=== PATIENT | female | born 1965 | race Caucasian/White ===

== ENCOUNTER 2017-01-17 07:15 | Emergency (ER) | payer BC ==
[2017-01-17 07:52] VITALS: BP 122/70
--- NOTE | 2017-01-17 08:48 | RAD ---
INDICATION: Left wrist pain. TECHNIQUE: 3 views of the left wrist were obtained. FINDINGS: The bones are in normal alignment. Joint spaces appear maintained. No fracture is seen. There is a curvilinear calcific density which projects along the volar aspect of the wrist anterior to the distal carpal row possibly representing an old fracture fragment. Joint spaces appear maintained. IMPRESSION: SOFT TISSUE CALCIFICATION DESCRIBED.
[2017-01-17] MEDS ORDERED: Ibuprofen TAB* 400 MG PO ONE (08:55)
--- NOTE | 2017-01-24 15:47 | UC ---
Hand/Wrist HPI - HPI Summary HPI Summary: Patient presents with nontraumatic left wrist pain with associated small reddened area. She reports pain at rest that is worse with movement. - History Of Current Complaint Chief Complaint: UCUpperExtremity Stated Complaint: WRIST INJURY Time Seen by Provider: 01/17/17 08:15 Onset/Duration: Gradual Onset, Lasting Days Severity Initially: Mild Severity Currently: Moderate Pain Intensity: 0 Pain Scale Used: 0-10 Numeric Character Of Pain: Dull, Aching Aggravating Factor(s): Movement, Lifting, Flexion, Extension, Twisting, Pulling Alleviating Factor(s): Elevation, OTC Meds Associated Signs And Symptoms: Positive: Redness - Risk Factors Compartment Syndrome Risk Factors: Pain - Allergies/Home Medications Allergies/Adverse Reactions: Allergies Allergy/AdvReac Type Severity Reaction Status Date / Time No Known Allergies Allergy Verified 01/17/17 11:33 Home Medications: Home Medications Lactobacillus [Probiotic] 1 tab PO DAILY 01/17/17 [History Confirmed 01/17/17] PMH/Surg Hx/FS Hx/Imm Hx Previously Healthy: Yes Other History Of: Negative For: Anticoagulant Therapy - Surgical History Surgical History: Yes Surgery Procedure, Year, and Place: CHOLECYSTECTOMY 2000, APPENDECTOMY 2000, TOTAL HYSTERECTOMY 1999, - 1995, hernia repair 1995, laproscopic procedure for adhesions 1998, diagnostic laparotomy 2001. [place] 04[place]2013 [place] [facility] [place] History Known Family History: Positive: Cardiac Disease, Hypertension - Social History Occupation: Employed Full-time Lives: Alone Alcohol Use: Occasionally Alcohol Amount: "Socially- on weekends" Substance Use Type: None Smoking Status (MU): Current Some Day Smoker Type: Cigarettes Amount Used/How Often: 10 CIGS PER WEEK Have You Smoked in the Last Year: Yes - Immunization History Most Recent Influenza Vaccination: Not UTD Most Recent Tetanus Shot: last 10 years Most Recent Pneumonia Vaccination: never Review of Systems Constitutional: Negative Skin: Negative Eyes: Negative ENT: Negative Respiratory: Negative Cardiovascular: Negative Gastrointestinal: Negative Genitourinary: Negative Motor: Negative Neurovascular: Negative Musculoskeletal: Decreased ROM, Myalgia Neurological: Negative Psychological: Negative All Other Systems Reviewed And Are Negative: Yes Physical Exam Triage Information Reviewed: Yes Appearance: Well-Appearing Vital Signs: Initial Vital Signs Temp 98.8 F 01/17/17 07:40 Pulse 75 01/17/17 07:40 Resp 16 01/17/17 07:40 BP 122/70 01/17/17 07:40 Pulse Ox 100 01/17/17 07:40 Eye Exam: Normal ENT Exam: Normal Neck exam: Normal Neck: Positive: 1 Respiratory Exam: Normal Cardiovascular Exam: Normal Abdominal Exam: Normal Musculoskeletal Exam: Normal Musculoskeletal: Positive: ROM Limited @, Edema @ - left wrist;inspection, no gross deformity, edema, or erythema, there is a small pink area on medial aspect rom, decreased with some resistent with flexion/extension, radial and ulnar deviation. vasc, radial and ulnar pulses present. neruo,intact. Neurological Exam: Normal Skin Exam: Normal Hand/Wrist Course/Dx - Course Course Of Treatment: Patient presents with left wrist pain, xrays were obtained and are negative. splint applied, pain addressed, prednisone rx, ortho f/u. discharge in stable condition. - Differential Dx/Diagnosis Provider Diagnoses: swollen joint Discharge - Discharge Plan Condition: Stable Disposition: HOME Prescriptions: predniSONE TAB* [Deltasone TAB*] 20 mg PO DAILY #5 tab Patient Education Materials: Swollen Joint (ED), Cellulitis (ED) Referrals: Chase Dsouza MD [Medical Doctor] - Ivett Dugan MD [Primary Care Provider] -
== END 2017-01-17 09:12 | disposition home or self-care (01) ==
LOC: UCEAST 07:15
DX: M25.432 Effusion, left wrist (principal); Z90.49 Acquired absence of other specified parts of digestive tract; Z90.710 Acquired absence of both cervix and uterus; Z72.0 Tobacco use
CPT/HCPCS: 99212; A9270-GY; G0463

== ENCOUNTER 2017-01-17 11:07 | Inpatient (IN) | payer BC ==
[2017-01-17] MEDS ORDERED: Ketorolac INJ* 30 MG/ML 1 ML VIAL IV PUSH ONE (11:45)
[2017-01-17] MEDS ORDERED: Clindamycin 900 MG IVPREMIX(* 900 MG/50 ML SDV IV ONE (11:45)
[2017-01-17 12:13] LABS: Hematocrit 37 % (35-47); Hemoglobin 12.7 g/dl (12.0-16.0); Mean Corpuscular HGB Conc 34 g/dl (31-36); Mean Corpuscular Hemoglobin 32 pg (27-31); Mean Corpuscular Volume 95 fL (80-97); Mean Platelet Volume 8 um3 (7.4-10.4); Red Blood Count 3.94 10^6/ul (4.0-5.4); Red Cell Distribution Width 13 % (10.5-15); White Blood Count 14.2 10^3/ul (3.5-10.8)
[2017-01-17 12:50] LABS: Albumin 4.4 g/dL (3.2-5.2); BUN/Creatinine Ratio 15.1 (8-20); Calcium 9.5 mg/dL (8.6-10.3); EGFR Non-African American 84.7 (>60); Globulin 2.8 g/dL (2-4); Potassium 3.8 mmol/L (3.5-5.0); Total Bilirubin 0.4 mg/dL (0.2-1.0); Total Protein 7.2 g/dL (6.4-8.9)
[2017-01-17 12:51] LABS: C Reactive Protein 3.05 mg/L (< 5.00)
--- NOTE | 2017-01-17 12:52 | ED ---
Skin Complaint - HPI Summary HPI Summary: Patient presents to the ED with left ventral wrist pain and erythema since last evening. She denies known insect bites or other vectors for infection. She states last evening she notes to a small erythematous area to the wrist with mild amount of pain. Today, she awoke with worsening pain, swelling, erythema and unable to bend at the wrist. Denies IV drug use. She was sent from [facility] to [facility]. Dr. Seth called at noon to give report. He sent her here from his office for possible IV antibiotics and blood cultures, etc. She denies other symptoms. Denies hx of MRSA. - History of Current Complaint Chief Complaint: EDExtremityUpper Time Seen by Provider: 01/17/17 11:39 Stated Complaint: LT ARM POSS INFECTION Hx Obtained From: Patient Onset/Duration: Started Hours Ago Skin Exposure Onset/Duration: Hours Ago Timing: Constant Onset Severity: Moderate Current Severity: Moderate Pain Intensity: 5 Pain Scale Used: 0-10 Numeric Skin Location: Arm - wrist Character: Swelling, Pain, Redness Aggravating Symptom(s): Touch Alleviating Symptom(s): Nothing Associated Signs & Symptoms: Red Streaks, Joint Swelling - Allergy/Home Medications Allergies/Adverse Reactions: Allergies Allergy/AdvReac Type Severity Reaction Status Date / Time No Known Allergies Allergy Verified 01/17/17 11:33 PMH/Surg Hx/FS Hx/Imm Hx Previously Healthy: Yes Endocrine/Hematology History: Denies: Hx Anticoagulant Therapy, Hx Blood Disorders, Hx Blood Transfusions, Hx Bone Marrow Disease, Hx Diabetes, Hx Systemic Lupus Erythematosus, Hx Sickle Cell Disease, Hx Thyroid Disease, Hx Anemia, Hx Unexplained Bleeding Cardiovascular History: Reports: Other Cardiovascular Problems/Disorders - HX FLUID IN HER LUNGS 2007 Denies: Hx Aneurysm, Hx Angina, Hx Angioplasty, Hx Auto Implanted Cardiovert Defib, Hx Cardiac Arrest, Hx Cardiomegaly, Hx Congenital Heart Disease, Hx Congestive Heart Failure, Hx Coronary Artery Disease, Hx Deep Vein Thrombosis, Hx Hypercholesterolemia, Hx Hypotension, Hx Hypertension, Hx Pacemaker/ICD, Hx Peripheral Vascular Disease, Hx Rheumatic Fever, Hx Syncope, Hx Valvular Heart Disease Respiratory History: Denies: Hx Asthma, Hx Chronic Bronchitis, Hx Chronic Obstructive Pulmonary Disease (COPD), Hx Cystic Fibrosis, Hx Lung Cancer, Hx Pleural Effusion, Hx Pneumonia, Hx Pulmonary Edema, Hx Pulmonary Embolism, Hx Seasonal Allergies, Hx Sleep Apnea GI History: Reports: Hx Gall Bladder Disease - cholecystectomy, Hx Gastroesophageal Reflux Disease, Other GI Disorders - see above Denies: Hx Cirrhosis, Hx Crohn's Disease, Hx Diverticulosis, Hx Gastrointestinal Bleed, Hx Hiatal Hernia, Hx Irritable Bowel, Hx Jaundice, Hx Obstructive Bowel, Hx Ileostomy, Hx Pyloric Stenosis, Hx Ulcer History: Reports: Hx Acute Renal Failure, Hx Renal Disease, Other Problems /Disorders - endometriosis, removal of adhesions, hysterectomy Denies: Hx Benign Prostatic Hyperplasia, Hx Chronic Renal Failure, Hx Dialysis, Hx Kidney Infection, Hx Kidney Stones Musculoskeletal History: Denies: Hx Arthritis, Hx Back Problems, Hx Bursitis, Hx Congenital Bone Abnormalities, Hx Fibromyalgia, Hx Gout, Hx Orthopedic Injury, Hx Osteoporosis, Hx Scoliosis, Hx Tendonitis Sensory History: Reports: Hx Contacts or Glasses - CONTACTS, GLASSES Denies: Hx Cataracts, Hx Eye Injury, Hx Eye Prosthesis, Hx Glaucoma, Hx Macular Degeneration, Hx Vision Problem, Hx Deafness, Hx Hearing Aid, Hx Hearing Problem, Other Sensory Impairments Opthamlomology History: Reports: Hx Contacts or Glasses - CONTACTS, GLASSES Denies: Hx Cataracts, Hx Eye Injury, Hx Eye Prosthesis, Hx Glaucoma, Hx Macular Degeneration, Hx Vision Problem, Other Sensory Impairments Neurological History: Reports: Hx Transient Ischemic Attacks (TIA) - possibly TIA in 2000 Denies: Hx Dementia, Hx Developmental Delay, Hx Headaches, Hx Migraine, Hx Nerve Disease, Hx Seizures, Hx Spinal Cord Injury Psychiatric History: Reports: Hx Anxiety - ON MEDS, Hx Depression - ON MEDS Denies: Hx Attention Deficit Hyperactivity Disorder, Hx Eating Disorder, Hx Panic Disorder, Hx Post Traumatic Stress Disorder, Hx Inpatient Treatment, Hx Community Mental Health Tx, Hx Schizophrenia, Hx Bipolar Disorder, Hx Suicide Attempt, Hx of Violent Episodes Against Others, Hx Substance Abuse, Other Psychiatric Issues/Disorders - Cancer History Hx Chemotherapy: No Hx Radiation Therapy: No - Surgical History Surgery Procedure, Year, and Place: CHOLECYSTECTOMY 2000, APPENDECTOMY 2000, TOTAL HYSTERECTOMY 1999, - 1995, hernia repair 1995, laproscopic procedure for adhesions 1998, diagnostic laparotomy 2001. BLADDER REPAIR 04/2013 , [facility] Hx Anesthesia Reactions: No - Immunization History Hx Pertussis Vaccination: No Immunizations Up to Date: Unable to Obtain/Confirm Infectious Disease History: No Infectious Disease History: Denies: Hx Clostridium Difficile, Hx Hepatitis, Hx Human Immunodeficiency Virus (HIV), Hx of Known/Suspected MRSA, Hx Shingles, Hx Tuberculosis, Hx Known/ Suspected VRE, Hx Known/Suspected VRSA, History Other Infectious Disease, Traveled Outside the [place] in Last 30 Days - Social History Occupation: Employed Full-time Lives: With Family Alcohol Use: Occasionally Alcohol Amount: "Socially- on weekends" Hx Substance Use: No Substance Use Type: Reports: None Hx Tobacco Use: Yes Smoking Status (MU): Current Some Day Smoker Type: Cigarettes Amount Used/How Often: 10 CIGS PER WEEK Have You Smoked in the Last Year: Yes Review of Systems - ROS Summary Review of Systems Summary: Constitutional: The patient denies fever, KING. HEENT: Head: The patient denies headaches or dizziness. Eyes: The patient denies diplopia, blurry vision, eye pain, eye discharge, photophobia. Throat: The patient denies sore throats or hoarseness. Cardiovascular: The patient denies chest pain, palpitations, syncope, night cramps, or orthostasis. Respiratory: The patient denies cough, sputum production, hemoptysis, dyspnea, wheezing. Gastrointestinal: The patient denies odynophagia, dysphagia, hematemesis, melenemesis. Denies abdominal pain, nausea or vomiting. Denies constipation or diarrhea. Genitourinary: Patient denies dysuria, hematuria, or pyuria. Patient denies back pain. Denies vaginal discharge, vaginal bleeding. Denies other urinary symptoms. Endocrine: The patient denies polydipsia, polyuria, or polyphagia. Muscles: The patient denies myalgia, strain or weakness. Joints: The patient denies arthralgia and/or arthritis. Neurologic: The patient denies headache, loss of consciousness, or seizure. Dermatologic: The patient endorses erythema and warmth to the flexor surface of the left wrist. Constitutional: Negative Eyes: Negative Cardiovascular: Negative Positive: Shortness Of Breath Gastrointestinal: Negative Genitourinary: Negative Positive: no symptoms reported, see HPI Positive: Arthralgia - left ventral wrist pain Positive: Other - erythema and swelling Neurological: Negative Psychological: Normal All Other Systems Reviewed And Are Negative: Yes Physical Exam - Summary Physical Exam Summary: Appearance: WDW, comfortable, pleasant, alert Skin: Soft dry skin, no lesions. Nailbeds pink with no cyanosis or clubbing. No petechia noted. Eyes: RADHA, EOMI, Conjunctiva pink with no redness or exudates. Mouth: Dentition without lesions. Moist mucosa Neck: Full range of motion. Palpable thyroid. Trachea at midline. No lymphadenopathy. - specifically epitrochlear nodes. Pulm: Chest symmetrical expansion. No deformities on posterior chest wall. Lungs clear to auscultation and percussion, without adventitious sounds. CV: No JVD. No deformities on anterior chest wall. Heart sounds. RRR, Normal S1 and single S2. No S3, S4, rubs, or murmurs. Carotids 2+ bilaterally without bruits. . exam not performed Musculoskeletal: Flexion and extension of neck without limitations. ROM WNL in all extremities. No deformities noted. Pulses full and equal. Neuro: Motor strength is 5/5 in upper and lower extremities bilaterally. A&OX3 Psych: Logical, coherent Skin: Erythema and warmth to the volar surface of the wrist with mild amount of swelling, streaking up to the arm 1/2 way up the forearm. Triage Information Reviewed: Yes Vital Signs On Initial Exam: Initial Vitals Temp Pulse Resp BP Pulse Ox 98.3 F 81 16 128/112 97 01/17/17 11:31 01/17/17 11:31 01/17/17 11:31 01/17/17 11:31 01/17/17 11:31 Vital Signs Reviewed: Yes Appearance: Positive: Well-Appearing Skin: Positive: Warm, Skin Color Reflects Adequate Perfusion, Other - erythema and warmth to the ventral side of the wrist Head/Face: Positive: Normal Head/Face Inspection Eyes: Positive: RADHA Neck: Positive: Supple, No Lymphadenopathy Respiratory/Lung Sounds: Positive: Clear to Auscultation, Breath Sounds Present Cardiovascular: Positive: RRR, Pulses are Symmetrical in both Upper and Lower Extremities Musculoskeletal: Positive: Pain @ - ventral wrist pain - limited ROM Neurological: Positive: Sensory/Motor Intact, Alert, Oriented to Person Place, Time, Speech Normal Psychiatric: Positive: Normal - [place] Coma Scale Coma Scale Total: 15 Diagnostics - Vital Signs Vital Signs Temp Pulse Resp BP Pulse Ox 01/17/17 12:30 77 73/45 97 01/17/17 12:05 78 127/86 98 01/17/17 11:31 98.3 F 81 16 128/112 97 - Laboratory Lab Results: Lab Results 10/16/17 10/16/17 Range/Units 11:59 11:59 WBC 14.2 H (3.5-10.8) 10^3/ul RBC 3.94 L (4.0-5.4) 10^6/ul Hgb 12.7 (12.0-16.0) g/dl Hct 37 (35-47) % MCV 95 (80-97) fL MCH 32 H (27-31) pg MCHC 34 (31-36) g/dl RDW 13 (10.5-15) % Plt Count 278 (150-450) 10^3/ul MPV 8 (7.4-10.4) um3 Neut % (Auto) 79.2 (38-83) % Lymph % (Auto) 11.7 L (25-47) % Clinton % (Auto) 7.9 (1-9) % Eos % (Auto) 0.4 (0-6) % Baso % (Auto) 0.8 (0-2) % Absolute Neuts (auto) 11.3 H (1.5-7.7) 10^3/ul Absolute Lymphs (auto) 1.7 (1.0-4.8) 10^3/ul Absolute Monos (auto) 1.1 H (0-0.8) 10^3/ul Absolute Eos (auto) 0.1 (0-0.6) 10^3/ul Absolute Basos (auto) 0.1 (0-0.2) 10^3/ul Absolute Nucleated RBC 0 10^3/ul Nucleated RBC % 0 ESR Pending Lactic Acid 1.1 (0.5-2.0) mmol/L Result Diagrams: 01/17/17 11:59 01/17/17 11:59 Lab Statement: Any lab studies that have been ordered have been reviewed, and results considered in the medical decision making process. Course/Dx - Course Course Of Treatment: Patient is given 600mg Clindamycin IV. Toradol 30mg IV. On PE patient is unable to flex and extend at the wrist. She has a streaking erythematous warm homogenous area up the arm. S/P clindamycin, 2 streaks are noted and are spreading. Dr. Seth to consult on patient. Concern for flexor tenosynovitis vs. cellulitis vs. compartment syndrome. However, palmar side of ipsilateral hand is without pain. She is able to bend at the MCP joint and fingers have ROM. Unable to rotate, flex or extend at the wrist. She denies injury or open wounds. No hx of MRSA. Vancomycin 1500mg given. Upon re -evaluation, she is noted to have worsening spreading (3 streaks) which is just distal to the elbow joint on the ventral surface. No epitrochlear enlarged LN noted. Dr. Seth to come see patient at 5pm who agrees to take her to the OR for washout. Unclear if this is flexor tenosynovitis, but d/t apparant resistance of 2 IV antibiotics with homogenous spread - agrees to take to OR for washout. Patient made aware and she agrees. She is given IV ativan for anxiety 1 hour prior to discharge to OR. VS stable. NPO status at 930am (8 hours prior to expected surgery). - Diagnoses Provider Diagnoses: Cellulitis Discharge - Discharge Plan Condition: Stable Disposition: ADMITTED TO [facility] Referrals: Ivett Dugan MD [Primary Care Provider] - Images - Images Hands: 1 - ventral wrist pain and erythema with warmth and slight swelling
[2017-01-17 13:17] LABS: Erythrocyte Sed Rate 11 mm/Hr (0-14)
[2017-01-17 13:24] LABS: Urine Bacteria Absent (Absent); Urine Bilirubin Negative (Negative); Urine Glucose Negative (Negative); Urine Nitrite Negative (Negative)
[2017-01-17] MEDS ORDERED: Vancomycin(*) 1,500 MG in NS 0.9% 250 ML* 250 ML IVPB ONE (14:24)
[2017-01-17] MEDS ORDERED: LORazepam INJ* 2 MG/ML 1 ML VIAL IV PUSH ONE (15:02)
[2017-01-17] MEDS ORDERED: NS 0.9% 250 ML* 250 ML ONE (15:11)
[2017-01-17] MEDS ORDERED: Morphine INJ* 2 MG/ML 1 ML SYRINGE (TWO MG - NEW SYRINGE VERSION) IV PRN (18:36)
[2017-01-17] MEDS ORDERED: Acetaminophen TAB* 325 MG PO PRN (18:36)
[2017-01-17] MEDS ORDERED: traZODone TAB* 50 MG TAB PO PRN (18:36)
[2017-01-17] MEDS ORDERED: diPHENhydraMINE IV* 50 MG/ML 1 ml VIAL (BENADRYL) IV PRN (18:36)
[2017-01-17] MEDS ORDERED: fentaNYL* 50 MCG/ML 2 ML VIAL (100 MCG VIAL) IV PRN (18:58)
[2017-01-17] MEDS ORDERED: Vancomycin(*) 0 MG in NS 0.9% 250 ML* 250 ML IVPB SCH (19:00)
[2017-01-17] MEDS ORDERED: Lidocaine 2% PF * 5 ML VIAL ONE (19:04)
[2017-01-17] MEDS ORDERED: Propofol* 10 MG/ML 20 ML BTL IV PUSH ONE (19:04)
[2017-01-17] MEDS ORDERED: fentaNYL* 50 MCG/ML 2 ML VIAL (100 MCG VIAL) ONE (19:05)
[2017-01-17] MEDS ORDERED: oxyCODONE TAB* 5 MG TAB ONE (21:43)
[2017-01-17] MEDS: oxyCODONE TAB* 5 MG TAB PO PRN (21:44)
[2017-01-17] MEDS ORDERED: Vancomycin per Pharmacy* NOTE FOLLOW UP PRN (21:53)
[2017-01-17] MEDS: Docusate CAP* 100 MG PO SCH (22:02)
[2017-01-17] MEDS: Vancomycin(*) 1,000 MG in NS 0.9% 250 ML* 250 ML IVPB SCH (23:42)
--- NOTE | 2017-01-18 02:04 | CONS ---
ORTHOPEDIC CONSULTATION NOTE: DATE OF CONSULT: 01/17/17 CONSULTING SERVICE: Orthopedics. REQUESTING CONSULT: Emergency room. CHIEF COMPLAINT: Left wrist pain. HISTORY OF PRESENT ILLNESS: Please see my prior office note for full history. Mey is a woman who woke up yesterday morning with left wrist pain and swelling , had progressed to erythema and I saw her this morning. At that time she had minimal tracking up the arm, but I sent her to the emergency room for IV antibiotics. She got a dose of clindamycin and then vancomycin and when I came over this afternoon to reevaluate her, erythema was continuing to spread, the swelling was worsening and the pain was worsening. There was an area at the ulnar aspect of the volar wrist that seemed to be epicenter of her pain. Past medical history, surgical history, review of systems, and allergies, please see dictated office note. PHYSICAL EXAM: There is erythema, swelling, and proximal tracking of the volar left wrist, more on the ulnar side. She does continue to be able to range the wrist and fingers with some pain along the tendons, but no pain in the joints themselves. Painless passive range of motion and active range of motion in the left shoulder and left elbow. She is quite tender to palpation, especially just proximal to the wrist joint at the ulnar side, volarly at the wrist. No crepitus. LABORATORY DATA: White blood count 14. ASSESSMENT AND PLAN: Mey is a 51-year-old woman who has had a worsening left volar wrist infection over the last day. Despite pain in the emergency room most of the day today and receiving a dose of clindamycin IV and then a dose of vancomycin IV, the pain, swelling and erythema was progressing. I discussed the options with her including both nonoperative and operative measures including continuing to watch this on IV antibiotics versus making a small incision, irrigating the area in hopes that we could decompress any nidus of infection. After discussing the risks and benefits of both at length, she decided that she would like to move forward with an I and D which I think is a good option. She has been n.p.o., so we will take her to the operating room this evening for an I and D. All questions were answered. [id number]/[facility] #: [id number] MTDD
[2017-01-18] MEDS: oxyCODONE TAB* 5 MG TAB PO PRN ×4 (05:32→20:38)
[2017-01-18 06:53] LABS: Hematocrit 32 % (35-47); Hemoglobin 11.1 g/dl (12.0-16.0); Mean Corpuscular HGB Conc 35 g/dl (31-36); Mean Corpuscular Hemoglobin 33 pg (27-31); Mean Corpuscular Volume 96 fL (80-97); Mean Platelet Volume 8 um3 (7.4-10.4); Red Blood Count 3.37 10^6/ul (4.0-5.4); Red Cell Distribution Width 13 % (10.5-15); White Blood Count 6.6 10^3/ul (3.5-10.8)
[2017-01-18 07:11] LABS: BUN/Creatinine Ratio 12.5 (8-20); Calcium 8.4 mg/dL (8.6-10.3); EGFR African American 126.8 (>60); EGFR Non-African American 98.6 (>60)
[2017-01-18] MEDS: Vancomycin(*) 1,000 MG in NS 0.9% 250 ML* 250 ML IVPB SCH (08:24)
[2017-01-18] MEDS: Aspirin TAB* 325 MG PO SCH (08:24)
[2017-01-18] MEDS: Docusate CAP* 100 MG PO SCH ×2 (08:24→20:39)
[2017-01-18 09:14] LABS: Erythrocyte Sed Rate 20 mm/Hr (0-14)
--- NOTE | 2017-01-18 12:31 | OP ---
DATE OF OPERATION: 01/17/17 - ROOM #338 DATE OF : 69 SURGEON: Chase Dsouza MD [employer]: None. ANESTHESIOLOGIST: Prashanth Van DO ANESTHESIA: GETA. PRE-OP DIAGNOSIS: Left distal forearm soft tissue infection. POST-OP DIAGNOSIS: Left distal forearm soft tissue infection. OPERATIVE PROCEDURE: Left soft tissue incision and drainage of left distal forearm. INDICATIONS: Mey is a 51-year-old woman with a worsening soft tissue infection over the last 48 hours and this is despite receiving IV antibiotics in the emergency room throughout the day today. We discussed both nonoperative and operative options at this point, but given worsening infection, she did elect to have an I and D as well as cultures. We did discuss the nature and risks of surgery at length and in careful detail in the emergency room as well as in the preoperative holding area. This included the risks of surgery, but were not limited to, infection, recurrence, wound problems, nerve injury, neuroma, RSD, persistent infection, and even the remote chance of catastrophic complication including loss of limb. She expressed understanding and her desire to move forward. TOURNIQUET TIME: Less than 20 minutes at 200 mmHg. SPECIMENS: Culture sent to Microbiology. ESTIMATED BLOOD LOSS: Minimal. COMPLICATIONS: None. STATUS: Stable from the operating room to the recovery room and then admitted to the hospital floor. DESCRIPTION OF PROCEDURE: The patient was seen in the preoperative holding unit and informed consent was obtained. The appropriate extremity was marked. The patient was then brought to the operating room and carefully positioned on the operating table. Anesthesia was induced. All bony prominences were padded with great care. A ChloraPrep scrub and drape in standard sterile fashion was performed. Surgical safety pause was conducted in which we confirmed the appropriate patient, extremity, planned procedure, availability of equipment, indication, and administration of antibiotics for which she had already been on. I began with an approximately 3-cm ulnar-based incision at the volar forearm. I dissected carefully down to the FCU tendon as a landmark. I then dissected down between the ulnar artery and nerve and the flexor tendons. This plane was utilized to get down to the level of the pronator quadratus. There was no kacey abscess encountered. However, there was some mildly purulent looking fluid, which was sent for culture. This area was dissected out carefully and then thoroughly irrigated with sterile saline and cysto tubing. After this, the tourniquet was let down. There was no bleeding and she had a strong ulnar artery pulse. The wound was then sutured and closed in layers using 3-0 Monocryl and 3-0 nylon. A dry sterile dressing was applied. The patient was awakened from anesthesia and transferred to the recovery room in stable condition. COMPLICATIONS: None. ATTESTATION: I attest that I was present and scrubbed and performed the entire procedure myself. POSTOPERATIVE PLAN: Mey will be admitted to the hospital floor and continue on IV vancomycin overnight. I will recheck on her tomorrow and hopefully the infection is improving at that time. [id number]/[facility] #: [id number] HUDSON
[2017-01-18] MEDS: Ondansetron INJ* 2 MG/ML VIAL IV PRN (15:08)
[2017-01-18] MEDS: Clindamycin 600 MG IVPREMIX(* 600 MG/50 ML SDV IV SCH ×2 (15:09→22:57)
[2017-01-18] MEDS ORDERED: Vancomycin Trough Check NOTE FOLLOW UP ONE (15:30)
[2017-01-18] MEDS ORDERED: Calcium Carbonate CHEW TAB* 500 MG (TUMS) ONE (17:48)
[2017-01-18] MEDS ORDERED: Calcium Carbonate CHEW TAB* 500 MG (TUMS) PO PRN (17:49)
--- NOTE | 2017-01-18 22:19 | CONS ---
CONSULTATION REPORT: DATE OF CONSULTATION: 01/18/17 REQUESTING PHYSICIAN: Chase Dsouza MD CONSULTING SERVICE: Infectious Disease. REASON FOR CONSULTATION: Left wrist infection. IMPRESSION: Left wrist cellulitis and abscess, status post incision and debridement, Gram stain negative, cultures negative so far gram positives including staph and strep. She does not recall any puncture wound, has not been sick otherwise with fevers, chills or sweats. May have been a microscopic injury to the skin that was the portal of entry. Her blood cultures are negative so far. RECOMMENDATIONS: Change clindamycin 600 mg IV every 8 hours and follow her here. As long as she continues to make her progress, she could change to oral clindamycin for another 10 days. HISTORY OF PRESENT ILLNESS: This is a 51-year-old woman with a left wrist infection. She was well until the weekend. She started to get a little bit of tenderness and redness on her medial wrist. She did not recall any trauma or injury and no animal contact. Because of ongoing and worsening redness and pain , she did come to the hospital yesterday. She was treated with clindamycin, had an x- ray of her wrist that was unremarkable. She was seen by Dr. Dsouza and was taken to the operating room and debrided her wrist. He found cloudy fluid amongst the tendons, no evidence of suppurative tenosynovitis. She has not had an infection like this in the past and has not required hospitalization for an infection. PAST MEDICAL HISTORY: 1. History of bladder rupture, which was repaired. 2. Ventral hernia repair. MEDICATIONS: 1. Tylenol. 2. Aspirin. 3. Vancomycin. 4. Oxycodone. ALLERGIES: No known drug allergies. FAMILY HISTORY: No recurrent infections. SOCIAL HISTORY: She lives in [place] with her . No travel. No sick contacts. No pets. REVIEW OF SYSTEMS: A 14-point review of systems was negative except as noted above. PHYSICAL EXAM: Vital Signs: Temperature is 37, heart rate is 70, respiratory rate 16, blood pressure 111/68, O2 sat 97% on room air. General: She is awake , not in distress. Neurologic: She is oriented x3. Follows all commands. Moves all extremities. HEENT: There is no thrush. Heart has regular rate and rhythm without murmurs, rubs, or gallops. Lungs are clear to auscultation bilaterally. Abdomen is soft, nontender, nondistended. There are bowel sounds present. Skin: There is no rash or splinter hemorrhages. Musculoskeletal: On the left volar wrist, there is an incision, which is intact without erythema. There is slight edema. There is no crepitus or fluctuance. Range of motion is normal in her finger flexion and extension. DIAGNOSTIC STUDIES/LAB DATA: White blood cell count 6.6, hemoglobin 11.1, platelets 219,000. Creatinine 0.6. CRP was 3. Please see impressions and recommendations outlined above. Thank you for asking me to see Ms. Long in consultation. [id number]/[facility] #: [id number] HUDSON
[2017-01-19] MEDS: oxyCODONE TAB* 5 MG TAB PO PRN (03:38)
[2017-01-19] MEDS: Clindamycin 600 MG IVPREMIX(* 600 MG/50 ML SDV IV SCH (06:21)
[2017-01-19] MEDS: Ondansetron INJ* 2 MG/ML VIAL IV PRN (08:20)
[2017-01-19] MEDS: Aspirin TAB* 325 MG PO SCH (08:57)
[2017-01-19] MEDS: Docusate CAP* 100 MG PO SCH (08:57)
--- NOTE | 2017-01-19 09:35 | PN ---
Progress Note - Progress Note Date of Service: 01/19/17 SOAP: Subjective: CC: Left wrist infection HPI: 51 year old woman who developed redness pain and swelling of left wrist that progressed over 48 hours, had I&D by Dr Smith. Pain much better, no redness. No fever, rash, or diarrhea. Objective: [] Vital Signs Temp 36.4 C 01/19/17 07:27 Pulse 71 01/19/17 07:27 Resp 18 01/19/17 08:00 BP 110/67 01/19/17 07:27 Pulse Ox 93 01/19/17 08:00 Intake & Output 01/18/17 01/19/17 01/19/17 18:59 06:59 18:59 Intake Total 720 2417 Output Total 625 Balance 95 2417 Intake: IV Fluids 1557 ABX - CLINDAMYCIN 305 LR 1252 Oral 720 860 Output: Urine 625 Other: Estimated Void Medium # Voids 1 Gen:awake, no distress L wrist: incision intact no edema, erythema, or crepitus Microbiology 01/17/17 12:00 Aerobic Blood Culture - Preliminary Blood Venous No Growth Day 1 Anaerobic Blood Culture - Preliminary No Growth Day 1 01/17/17 11:59 Aerobic Blood Culture - Preliminary Blood Venous No Growth Day 1 Anaerobic Blood Culture - Preliminary No Growth Day 1 01/17/17 19:00 Gram Stain - Final Wrist Left Wound Culture - Preliminary No Growth Day 1 01/17/17 19:00 Anaerobic Culture - Preliminary Wound - Wrist Left No Growth Day 1 Assessment: 1. culture negative left wrist abscess s/p I&D; no tenosynovitis found at surgery. Likely Strep given initial streaking. Continues to improve. Plan: 1. clindamycin 300 mg po tid x10 days, follow up with Dr Smith, please call me if further questions
[2017-01-19] MEDS ORDERED: traMADol TAB* 50 MG PO PRN (10:35)
--- NOTE | 2017-01-19 10:41 | PN ---
Progress Note - Progress Note Date of Service: 01/19/17 SOAP: Subjective: []Patient seen at bedside, doing fairly well with pain but thinks she may have vomited and has a headache from the oxycodone. She is ready to go home this afternoon when her ride is available on the Clindamycin as prescribed by Dr. Pompa. Objective: [] Vital Signs Temp 97.5 F 01/19/17 07:27 Pulse 71 01/19/17 07:27 Resp 18 01/19/17 08:00 BP 110/67 01/19/17 07:27 Pulse Ox 93 01/19/17 08:00 Intake & Output 01/18/17 01/19/17 01/19/17 18:59 06:59 18:59 Intake Total 720 2417 0 Output Total 625 Balance 95 2417 0 Intake: IV Fluids 1557 ABX - CLINDAMYCIN 305 LR 1252 Oral 720 860 0 Output: Urine 625 Other: Estimated Void Medium # Voids 1 Microbiology 01/17/17 12:00 Aerobic Blood Culture - Preliminary Blood Venous No Growth Day 1 Anaerobic Blood Culture - Preliminary No Growth Day 1 01/17/17 11:59 Aerobic Blood Culture - Preliminary Blood Venous No Growth Day 1 Anaerobic Blood Culture - Preliminary No Growth Day 1 01/17/17 19:00 Gram Stain - Final Wrist Left Wound Culture - Preliminary No Growth Day 1 01/17/17 19:00 Anaerobic Culture - Preliminary Wound - Wrist Left No Growth Day 1 Left wrist dressing is C/D/I mile hand and finger edema sensation and circulation intact throughout LUE Assessment: []s/p I&D left forearm infection POD #2 Plan: []Change pain med to Tramadol Home on Clinda 300 mg po tid X [address] Dsouza would like to see her on Tuesday in office for follow up
[2017-01-19 11:52] VITALS: BP 125/74
--- NOTE | 2017-01-20 01:30 | DS ---
DISCHARGE SUMMARY: DATE OF ADMISSION: 01/17/17 DATE OF DISCHARGE: 01/19/17 ATTENDING PHYSICIAN: Chase Dsouza MD * (DICTATED BY JUAN BERGER) ADMISSION DIAGNOSIS: Left distal forearm soft tissue infection. DISCHARGE DIAGNOSIS: Left distal forearm soft tissue infection. SURGERY PERFORMED: Left soft tissue incision and drainage of the left forearm. HOSPITAL COURSE: The patient is a 51-year-old female, does not remember a known injury to her left upper extremity, but developed redness and pain over the 48 hours prior to admission that did not improve with IV antibiotics in the emergency department. Options to continue with IV antibiotics for an additional 24 hours versus incision and drainage were discussed. The patient elected to proceed with surgical intervention and was taken to the operating room under the care of Dr. Chase Dsouza on the date of 01/17/17. She tolerated the procedure well and left the operating room in stable condition. Postoperatively , she noticed improvement in her pain, swelling, and there was noticeable improvement in the erythema of her forearm, status post I and D. She was seen by Dr. Pompa and was dosed with IV clindamycin. Due to the fact that she had rapid improvement after the I and D, it was felt that she would be able to be discharged home on clindamycin 300 mg p.o. t.i.d. for an additional 10 days. The patient's pain was under adequate control and she had no other postoperative problems and was found to be stable medically and orthopedically for discharge to home on 01/19/17. CONDITION ON DISCHARGE: She is afebrile with a temperature of 97.8, pulse 69, respiratory rate 16, O2 sat is 98% room air, blood pressure 125/74. PLAN: Discharge to home. She will continue to keep her wound clean and dry with the Killian wrap in place. Continue to work on range of motion of the fingers and the wrist to help decrease swelling in the soft tissues distally. She is provided with a prescription of tramadol 50 mg q.6 hours p.r.n. pain as well as clindamycin 300 mg p.o. t.i.d. for [address] Dsouza would like to see her in followup in the office, 01/24/17, for wound evaluation. If she has any problems with fever, chills, increased pain, swelling, redness in the left upper extremity, the office will be contacted prior to her followup next week. JUAN BERGER [id number]/CPS #: [id number] MTDD
== END 2017-01-19 12:45 | disposition home or self-care (01) | DRG 364 ==
LOC: ED 11:07 → OR 17:40 → SSU 21:33
PROVIDERS: ADMIT Orthopaedic Surgery; ATTEND Orthopaedic Surgery
PROC: 0J9K0ZZ Drainage of Left Hand Subcutaneous Tissue and Fascia, Open Approach (ICD-10-PCS; principal; 2017-01-17 19:00)
DX: L02.414 Cutaneous abscess of left upper limb (principal); F17.210 Nicotine dependence, cigarettes, uncomplicated; L03.114 Cellulitis of left upper limb; K21.9 Gastro-esophageal reflux disease without esophagitis; R40.2412 Glasgow coma scale score 13-15, at arrival to emergency department; F41.9 Anxiety disorder, unspecified; F32.9 Major depressive disorder, single episode, unspecified; Z72.89 Other problems related to lifestyle; Z90.49 Acquired absence of other specified parts of digestive tract; Z90.710 Acquired absence of both cervix and uterus
CPT/HCPCS: 36415; 80048; 80053; 81003; 81015; 83605; 85025; 85652; 86140; 87040; 87070; 87073; 87205; 99212; A9270-GY; G0463; J1885; J2060; J2270; J2405; J2704; J3010; J3370

== ENCOUNTER 2023-06-16 07:44 | Observation (INO) ==
[2023-06-16 08:08] LABS: ABS Basophils 0.1 10^3/uL (0.0-0.1); ABS Eosinophils 0.1 10^3/uL (0.0-0.5); ABS Lymphocytes 1.9 10^3/uL (1.0-4.8); ABS Monocytes 0.5 10^3/uL (0.0-0.9); Eosinophil % 2.1 %; Hemoglobin 13.6 g/dL (11.5-14.3); Lymphocyte % 33.4 %; Mean Platelet Volume 7.5 fL (7.5-11.2); Nucleated Red Blood Cells % 0.1 %/100WBC (0.0-0.8); Platelet Count 286 10^3/uL (150-450); Red Blood Count 4.26 10^6/uL (3.63-4.92); Red Cell Distribution Width 13.7 % (12-17); White Blood Count 5.6 10^3/uL (3.8-11.8)
[2023-06-16 09:15] LABS: Albumin 4.8 g/dL (3.2-5.2); Albumin/Globulin Ratio 1.8 (1-3); Calcium 9.7 mg/dL (8.6-10.3); Creatinine, Serum 0.76 mg/dL (0.51-0.95); Globulin 2.7 g/dL (2-4); Potassium 4.5 mmol/L (3.5-5.0); Total Bilirubin 0.5 mg/dL (0.2-1.0); Total Protein 7.5 g/dL (6.4-8.9); eGFR CKD-EPI 91.9 (>60)
[2023-06-16 09:22] LABS: INR 0.95 (0.83-1.13)
[2023-06-16 09:41] LABS: High Sensitivity Troponin 1 Hr < 3 pg/mL (<15)
[2023-06-16 18:32] LABS: Magnesium 2.3 mg/dL (1.9-2.7); Phosphorus 3.6 mg/dL (2.5-5.0)
[2023-06-17 05:33] LABS: ABS Eosinophils 0.1 10^3/uL (0.0-0.5); ABS Lymphocytes 1.9 10^3/uL (1.0-4.8); ABS Monocytes 0.5 10^3/uL (0.0-0.9); ABS Neutrophils 3.2 10^3/uL (1.5-7.6); ABS Nucleated RBC 0.01 10^3/ul; Eosinophil % 2.3 %; Hematocrit 39.1 % (35-45); Hemoglobin 13.2 g/dL (11.5-14.3); Lymphocyte % 32.7 %; Mean Corpuscular Hemoglobin 31.7 pg (27-33); Mean Corpuscular Hgb Conc 33.8 g/dL (31-36); Mean Corpuscular Volume 93.8 fL (80-97); Mean Platelet Volume 7.6 fL (7.5-11.2); Nucleated Red Blood Cells % 0.1 %/100WBC (0.0-0.8); Platelet Count 283 10^3/uL (150-450); Red Blood Count 4.17 10^6/uL (3.63-4.92); Red Cell Distribution Width 13.5 % (12-17); White Blood Count 5.9 10^3/uL (3.8-11.8)
[2023-06-17 05:53] LABS: Calcium 9.3 mg/dL (8.6-10.3); Creatinine, Serum 0.68 mg/dL (0.51-0.95); HDL Cholesterol 82.3 mg/dL; Potassium 4.3 mmol/L (3.5-5.0); eGFR CKD-EPI 102.2 (>60)
[2023-06-17 06:08] LABS: TSH Ultra Thyroid Stim Horm 3.71 mcIU/mL (0.34-5.60)
[2023-06-17] MEDS: Aspirin EC 81 mg TAB.EC (enteric coated) PO SCH (09:53)
[2023-06-17 10:03] VITALS: BP 108/72
== END 2023-06-17 11:20 | disposition home or self-care (01) ==
LOC: ED 07:44 → EDHOLD 07:44 → MEDTELE 21:26
PROVIDERS: ADMIT Internal Medicine; ATTEND Internal Medicine